=== PATIENT | male | born 1980 | race Caucasian/White ===

== ENCOUNTER 2017-09-08 05:34 | Emergency (ER) | payer BC ==
[2017-09-08 06:21] LABS: BILIRUBIN,URINE NEGATIVE (NEG); CLARITY,URINE CLEAR; COLOR,URINE YELLOW; GLUCOSE,URINE NEGATIVE (NEG); NITRITE,URINE NEGATIVE (NEG); PH,URINE 5.5; PROTEIN,URINE NEGATIVE (NEG-TRACE); UROBILINOGEN,URINE 0.2 mg/dL (0.2 mg/dL)
[2017-09-08 06:28] LABS: SQUAMOUS EPITHELIAL CELL,UR OCC /LPF
[2017-09-08 06:29] LABS: BACTERIA,URINE 0 /HPF (0-FEW); RBC,URINE RARE /HPF (0-2); WBC,URINE OCC /HPF (0-4)
[2017-09-08] MEDS: IBUPROFEN 400 MG TABLET. PO (06:29)
[2017-09-08] MEDS: cefTRIAXone IM 250 MG VIAL IM (07:48)
[2017-09-08] MEDS: AZITHROMYCIN 250 MG TABLET. PO (07:48)
== END 2017-09-08 07:53 | disposition home or self-care (01) ==
LOC: ER 05:34
DX: N45.1 Epididymitis (principal); R10.32 Left lower quadrant pain; J45.909 Unspecified asthma, uncomplicated; Z88.5 Allergy status to narcotic agent
CPT/HCPCS: 76870; 81001; 96372; 99285-25; J0696; Q0144

== ENCOUNTER 2017-11-01 12:47 | Emergency (ER) | payer BC | END 2017-11-01 14:19 | disposition home or self-care (01) | LOC: ER 12:47 | DX: K02.9 Dental caries, unspecified (principal); J45.909 Unspecified asthma, uncomplicated; Z88.5 Allergy status to narcotic agent | CPT/HCPCS: 99283 ==

== ENCOUNTER 2018-05-13 09:18 | Emergency (ER) | payer BC ==
[~2018-05-13] VITALS: Ht 168.9 cm; Wt 61.2 kg
[~2018-05-13 09:18] MED LIST: CLIN300C8 PO; IBUP-1060 PO
[2018-05-13 09:30] VITALS: BP 132/95
[2018-05-13] MEDS ORDERED: IPRATRPIUM/ALBUTEROL 0.5/2.5MG 3 ML NEBU. NEB ONE (10:15)
[2018-05-13] MEDS ORDERED: predniSONE 20 MG TABLET PO ONE (10:15)
--- NOTE | 2018-05-13 10:45 | PHYS DOC ---
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 Patient denies any chest pain or shortness of breath. He is also complaining of subjective fevers. He states he has been using his inhaler with no relief. Review of Systems Review of Systems Constitutional: Reports fevers Eyes: Denies change in visual acuity, redness, or eye pain [] HENT: Denies nasal congestion or sore throat [] Respiratory: Reports cough, denies shortness of breath [] Cardiovascular: No additional information not addressed in HPI [] GI: Denies abdominal pain, nausea, vomiting, bloody stools or diarrhea [] : Denies dysuria or hematuria [] Musculoskeletal: Denies back pain or joint pain [] Integument: Denies rash or skin lesions [] Neurologic: Denies headache, focal weakness or sensory changes [] All other systems were reviewed and found to be within normal limits, except as documented in this note. Current Medications Current Medications Current Medications Medications (Trade) Dose Ordered Sig/Raphael Start Time Stop Time Status Last Admin Dose Admin Albuterol/ Ipratropium (Duoneb) 3 ml 1X ONCE 05/13/18 10:15 05/13/18 10:16 DC 05/13/18 10:20 3 ML Prednisone (Prednisone) 60 mg 1X ONCE 05/13/18 10:15 05/13/18 10:16 DC 05/13/18 10:19 60 MG Allergies Allergies Allergies Coded Allergies Type Severity Reaction Last Updated Verified codeine Allergy Intermediate anxiety 11/16/13 No Physical Exam Physical Exam Constitutional: Well developed, well nourished, no acute distress, non-toxic appearance. [] HENT: Normocephalic, atraumatic, bilateral external ears normal, oropharynx moist, no oral exudates, nose normal. [] Eyes: PERRLA, EOMI, conjunctiva normal, no discharge. [] Neck: Normal range of motion, no tenderness, supple, no stridor. [] Cardiovascular:Heart rate regular rhythm, no murmur [] Lungs & Thorax: wheezing to posterior left lower lung base Abdomen: Bowel sounds normal, soft, no tenderness, no masses, no pulsatile masses. [] Skin: Warm, dry, no erythema, no rash. [] Back: No tenderness, no CVA tenderness. [] Extremities: No tenderness, no cyanosis, no clubbing, ROM intact, no edema. [] Neurologic: Alert and oriented X 3, normal motor function, normal sensory function, no focal deficits noted. [] Psychologic: Affect normal, judgement normal, mood normal. [] Current Patient Data Vital Signs Vital Signs Date Time Temp Pulse Resp B/P (MAP) Pulse Ox O2 Delivery O2 Flow Rate FiO2 05/13/18 10:23 Room Air 05/13/18 09:30 98.4 100 20 132/95 (107) 98 98.4 Lab Values Laboratory Tests Test 05/13/18 10:05 Influenza Type A Antigen Negative (NEGATIVE) Influenza Type B Antigen Negative (NEGATIVE) EKG EKG [] Radiology/Procedures Radiology/Procedures [] Course & Med Decision Making Course & Med Decision Making Pertinent Labs and Imaging studies reviewed. (See chart for details) This is a 38-year-old male patient presenting to the ED today with cough, body aches, and subjective fevers for 2 weeks. Patient had some wheezing on arrival to the ED, was given a DuoNeb treatment. Chest x-ray is negative for any acute findings, negative for influenza A or B. Patient was discharged to home. Given prescription for albuterol inhaler, prednisone, Tessalon Perles. Follow-up with PCP in the next 7 days. Dragon Disclaimer Dragon Disclaimer This electronic medical record was generated, in whole or in part, using a voice recognition dictation system. Departure Departure Impression: Primary Impression: Upper respiratory infection Additional Impression: Asthma exacerbation Disposition: HOME, SELF-CARE Condition: STABLE Referrals: NO PCP (PCP) Follow-up with your doctor in one week Patient Instructions: Asthma, Adult, [id number], Upper Respiratory Infection , Child Additional Instructions: You were evaluated in the emergency room, a chest x-ray was negative for any acute findings, your influenza test was negative. Please use the prescribed medications as ordered. Follow-up with your doctor in the next 1 week. Scripts Benzonatate (TESSALON PERLE) 100 Mg Capsule 1 CAP PO TID, #30 CAP Prov: BIN HUTCHINS APRN 05/13/18 Albuterol Sulfate (VENTOLIN HFA INHALER) 18 Gm Hfa.aer.ad 2 PUFF INH Q4HRS for FOR ASTHMA, #1 INHALER 0 Refills Prov: PONCEBrianBIN DEL CID 05/13/18 Prednisone (PREDNISONE) 50 Mg Tablet 1 TAB PO DAILY, #5 TAB Prov: BIN HUTCHINS APRN 05/13/18 Problem Qualifiers Primary Impression: Upper respiratory infection URI type: unspecified URI Qualified Codes: J06.9 - Acute upper respiratory infection, unspecified Additional Impression: Asthma exacerbation Asthma severity: mild Asthma persistence: unspecified Qualified Codes: J45.901 - Unspecified asthma with (acute) exacerbation BIN HUTCHINS APRN May 13, 2018 10:45
[2018-05-13 10:49] LABS: INFLUENZA A PATIENT NEGATIVE (NEGATIVE); INFLUENZA B PATIENT NEGATIVE (NEGATIVE)
--- NOTE | 2018-05-13 10:50 | RAD ---
Chest, PA and Lateral: Technique: PA and lateral views of the chest were obtained. History: Cough, asthma. Comparison: 02/22/2008. Findings: The heart and pulmonary vasculature appear within normal limits. The lungs are clear. The pleural margins are clear. Impression: No acute chest process is seen. Electronically signed by: Daniel Scott MD (05/13/2018 10:47 AM) [place] [id number]
[2018-05-13] MEDS ORDERED: VENTOLIN HFA18 GM INH (11:35)
[2018-05-13] MEDS ORDERED: PRED50TA PO (11:35)
[2018-05-13] MEDS ORDERED: BENZ100C PO (11:35)
== END 2018-05-13 11:46 | disposition home or self-care (01) ==
LOC: ER 09:18
DX: J45.901 Unspecified asthma with (acute) exacerbation (principal); M79.18 Myalgia, other site; R50.9 Fever, unspecified; Z88.5 Allergy status to narcotic agent
CPT/HCPCS: 71046; 87804; 94640; 99284; J7512; J7620

== ENCOUNTER 2020-12-12 20:01 | Emergency (ER) | payer BC ==
[~2020-12-12 20:01] MED LIST changes: +BENZ100C PO; -CLIN300C8 PO; +CLIN300C9 PO; +PRED50TA PO; +VENTOLIN HFA18 GM INH
[2020-12-13] MEDS ORDERED: CYCL5TAB PO (11:08)
[2020-12-13] MEDS ORDERED: NAPR-682 PO (11:08)
== END 2020-12-12 20:20 | disposition left against medical advice (07) ==
LOC: ER 20:01
DX: R07.81 Pleurodynia (principal); Z53.21 Procedure and treatment not carried out due to patient leaving prior to being seen by health care provider

== ENCOUNTER 2020-12-13 09:38 | Emergency (ER) | payer SELFPAY ==
[~2020-12-13] VITALS: Ht 167.6 cm; Wt 58.2 kg
[2020-12-13] MEDS ORDERED: ASPIRIN CHEWABLE 81 MG TABLET. PO ONE (10:00)
--- NOTE | 2020-12-13 10:06 | ED.ADGEN ---
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 Patient reports he is using a drill on Thursday last week and using the right side of his chest to stabilize the drill. In doing so the patient sustained an injury to the right side of his chest. Patient reports since that time he has had pain with any kind of coughing or deep breathing. Patient also notes that he has some slight pain with any movement as he heard a pop when this occurred. Patient denies any history of being short of air. He further denies any substernal chest pain, cough or fever. He is awake, alert and nontoxic-appearing Review of Systems: Review of Systems: Constitutional: Denies fever or chills. [] Eyes: Denies change in visual acuity. [] HENT: Denies nasal congestion or sore throat. [] Respiratory: Reports chest wall/pleuritic pain. Denies cough or shortness of breath. [] Cardiovascular: Denies chest pain or edema. [] GI: Denies abdominal pain, nausea, vomiting, bloody stools or diarrhea. [] : Denies dysuria. [] Musculoskeletal: Denies back pain or joint pain. [] Integument: Denies rash. [] Neurologic: Denies headache, focal weakness or sensory changes. [] Endocrine: Denies polyuria or polydipsia. [] Lymphatic: Denies swollen glands. [] Psychiatric: Denies depression or anxiety. [] Family History: Family History: Noncontributory Current Medications: Current Medications Medications (Trade) Dose Ordered Sig/Raphael Start Time Stop Time Status Last Admin Dose Admin Aspirin (Aspirin Chewable) 324 mg 1X ONCE 12/13/20 10:00 12/13/20 10:05 DC Allergies: Allergies: Allergies Coded Allergies Type Severity Reaction Last Updated Verified codeine Allergy Intermediate anxiety 11/16/13 No Physical Exam: PE: Constitutional: Well developed, well nourished, no acute distress, non-toxic appearance. [] HENT: Normocephalic, atraumatic, bilateral external ears normal, oropharynx moist, no oral exudates, nose normal. [] Eyes: PERRLA, EOMI, conjunctiva normal, no discharge. [] Neck: Normal range of motion, no tenderness, supple, no stridor. [] Cardiovascular:Heart rate regular rhythm, no murmur [] Lungs & Thorax: Point tenderness palpation of the right chest wall. Bilateral breath sounds clear to auscultation [] Abdomen: Bowel sounds normal, soft, no tenderness, no masses, no pulsatile masses. [] Skin: Warm, dry, no erythema, no rash. [] Back: No tenderness, no CVA tenderness. [] Extremities: No tenderness, no cyanosis, no clubbing, ROM intact, no edema. [] Neurologic: Alert and oriented X 3, normal motor function, normal sensory function, no focal deficits noted. [] Psychologic: Affect normal, judgement normal, mood normal. [] Current Patient Data: Vital Signs: Vital Signs Date Time Temp Pulse Resp B/P (MAP) Pulse Ox O2 Delivery O2 Flow Rate FiO2 12/13/20 10:02 98.2 101 18 129/83 (98) 99 Room Air 98.2 EKG: EKG: [] Heart Score: C/O Chest Pain: N/A Risk Factors: Risk Factors: DM, Current or recent (<one month) smoker, HTN, HLP, family history of CAD, obesity. Risk Scores: Score 0 - 3: 2.5% MACE over next 6 weeks - Discharge Home Score 4 - 6: 20.3% MACE over next 6 weeks - Admit for Clinical Observation Score 7 - 10: 72.7% MACE over next 6 weeks - Early Invasive Strategies Radiology/Procedures: Radiology/Procedures: [] Impression: [facility] [id number] [place] [address] IMAGING REPORT Signed PATIENT: BECKY SOSA LACCOUNT: [id number] : 1980 LOCATION: ER AGE: 40 SEX: M EXAM STATUS: REG ER ORD. PHYSICIAN: ZAYNAB CONN DO REASON: Right-sided chest pain PROCEDURE: RIBS RIGHT AND PA CHEST 2 view right rib detail series and PA view chest x-ray Clinical indications: Right-sided chest pain. FINDINGS: No acute right rib fracture is evident. Chest x-ray demonstrates no acute lung infiltrate or lung mass or pleural effusion or pulmonary edema or pneumothorax. Biapical pleural thickening is seen. The heart size and pulmonary vasculature and mediastinum and both kayla are unremarkable. IMPRESSION: No acute right rib fracture. No acute lung infiltrate. Electronically signed by: Julio Kidd MD (12/13/2020 11:00 AM) [id number] DICTATED and SIGNED BY: JULIO KIDD MD DATE: 12/13/20 [id number] Course & Med Decision Making: Course & Med Decision Making Pertinent Labs and Imaging studies reviewed. (See chart for details) [] Dragon Disclaimer: Dragon Disclaimer: This electronic medical record was generated, in whole or in part, using a voice recognition dictation system. Departure Departure Impression: Primary Impression: Chest wall contusion Disposition: 01 HOME / SELF CARE / HOMELESS Condition: STABLE Referrals: NO PCP (PCP) Patient Instructions: Chest Contusion Scripts Cyclobenzaprine Hcl (CYCLOBENZAPRINE HCL) 5 Mg Tablet 1 TAB PO TID for 7 Days, #21 TAB Prov: ZAYNAB CONN DO 12/13/20 Naproxen Sodium (ANAPROX DS) 550 Mg Tablet 1 TAB PO BID for 7 Days, #14 TAB 0 Refills Prov: ZAYNAB CONN DO 12/13/20 ZAYNAB CONN DO Dec 13, 2020 10:06
[2020-12-13 10:30] VITALS: BP 117/71
--- NOTE | 2020-12-13 11:02 | RAD ---
2 view right rib detail series and PA view chest x-ray Clinical indications: Right-sided chest pain. FINDINGS: No acute right rib fracture is evident. Chest x-ray demonstrates no acute lung infiltrate or lung mass or pleural effusion or pulmonary edema or pneumothorax. Biapical pleural thickening is seen. The heart size and pulmonary vasculature and m ediastinum and both kayla are unremarkable. IMPRESSION: No acute right rib fracture. No acute lung infiltrate. Electronically signed by: Solo Kidd MD (12/13/2020 11:00 AM) [id number]
[2020-12-13] MEDS ORDERED: CYCL5TAB PO (11:08)
[2020-12-13] MEDS ORDERED: NAPR-682 PO (11:08)
== END 2020-12-13 11:19 | disposition home or self-care (01) ==
LOC: ER 09:38
DX: S20.211A Contusion of right front wall of thorax, initial encounter (principal); J45.909 Unspecified asthma, uncomplicated; Z88.5 Allergy status to narcotic agent; X58.XXXA Exposure to other specified factors, initial encounter; Y93.89 Activity, other specified; Y92.89 Other specified places as the place of occurrence of the external cause; Y99.8 Other external cause status
CPT/HCPCS: 71101; 99283